=== PATIENT | female | born 1960 | race Caucasian/White ===

== ENCOUNTER → 2019-11-07 | Outpatient (CLI) | payer OTHER ==
[~2019-11-07] MED LIST: BUPROBAN PO; CYCL10 PO; Flomax0.4 MG PO; HYDCHL25 PO; LEVSOD125 PO; MULTI VITAMIN1 EACH PO; Percocet 5-3251 EACH PO; Prilosec Otc20 MG PO; SERT50 PO; TRAM50 PO; Zofran Odt4 MG SL
[2019-11-07 11:40] LABS: Source, Urine Clean Catch
[2019-11-07 11:45] LABS: Bacteria Many /hpf; Red Blood Cells, Urine 0-2 /hpf (0-2); Squamous Epithelial Cells Many /hpf (Few)
== END | disposition home or self-care (01) ==
LOC: LAB SHORT 11:38 → LAB EV 11:38
PROVIDERS: Internal Medicine Geriatric Medicine
DX: N39.0 Urinary tract infection, site not specified (principal)
CPT/HCPCS: 81015; 87086

== ENCOUNTER → 2019-11-10 | Outpatient (CLI) | payer OTHER ==
[2019-11-10 13:37] LABS: BASOPHILS ABSOLUTE AUTO 0.05 K/mm3 (0.00-0.23); BASOPHILS PERCENT AUTO 1 % (0-2); EOSINOPHILS ABSOLUTE AUTO 0.16 K/mm3 (0.00-0.68); EOSINOPHILS PERCENT AUTO 2 % (0-6); Hematocrit 39.6 % (33.0-51.0); IMMATURE GRAN ABSOLUTE AUTO 0.03 K/mm3 (0.00-0.10); IMMATURE GRAN PERCENT AUTO 0 % (0-1); LYMPHOCYTES ABSOLUTE AUTO 1.37 K/mm3 (0.84-5.20); LYMPHOCYTES PERCENT AUTO 14 % (21-46); MONOCYTES PERCENT AUTO 8 % (4-13); Mean Corpuscular HGB 29.6 pg (26.0-34.0); Mean Corpuscular HGB Conc 32.8 g/dL (31.5-36.5); Mean Corpuscular Volume 90 fL (80-100); Mean Platelet Volume 9.2 fL (9.1-12.4); NEUTROPHILS ABSOLUTE AUTO 7.43 K/mm3 (1.96-9.15); NEUTROPHILS PERCENT AUTO 76 % (41-73); Platelet Count 443 K/mm3 (150-400); RDW Coefficient Variation 12.7 % (11.7-14.2); RDW Standard Deviation 41.6 fL (35.1-46.3); Red Blood Cell Count 4.39 M/mm3 (3.80-5.20); White Blood Cell Count 9.84 K/mm3 (4.00-11.30)
[2019-11-10 13:48] LABS: Alanine Aminotransfer (ALT/SGP 20 U/L (12-78); Albumin, Blood 3.2 g/dL (3.4-5.0); Albumin/Globulin Ratio 0.8 (0.8-1.8); Alk Phos 97 U/L (40-126); Anion Gap 10 mmol/L (6-16); Aspartate Aminotrans (AST/SGOT 19 U/L (12-37); Bilirubin, Total 0.7 mg/dL (0.1-1.0); Blood Urea Nitrogen 16 mg/dL (8-24); Bun/Creatinine Ratio 18.6 (12.0-20.0); CO2, Blood 30 mmol/L (21-32); Calcium, Blood 8.8 mg/dL (8.5-10.1); Chloride, Blood 102 mmol/L (98-108); Creatinine, Blood 0.86 mg/dL (0.40-1.00); Globulin, Blood 4.2 g/dL (2.2-4.0); Glomerular Filtration Rate >60 (60-); Glucose, Blood 107 mg/dL (70-99); Potassium, Blood 3.7 mmol/L (3.5-5.5); Sodium, Blood 142 mmol/L (136-145); Total Protein, Blood 7.4 g/dL (6.4-8.2)
== END | disposition home or self-care (01) ==
LOC: LAB SHORT 13:33 → LAB EV 13:33
PROVIDERS: Physician Assistant
DX: R10.32 Left lower quadrant pain (principal)
CPT/HCPCS: 80053; 83690; 85025

== ENCOUNTER 2021-01-05 20:12 | Emergency (ER) | payer OTHER | END 2021-01-05 22:32 | disposition home or self-care (01) | LOC: ER 20:12 | DX: S82.852A Displaced trimalleolar fracture of left lower leg, initial encounter for closed fracture (principal); E03.9 Hypothyroidism, unspecified; Z88.0 Allergy status to penicillin; Z79.899 Other long term (current) drug therapy; W01.0XXA Fall on same level from slipping, tripping and stumbling without subsequent striking against object, initial encounter ==

== ENCOUNTER 2021-01-15 10:55 | Day surgery (SDC) | payer OTHER ==
[~2021-01-15] VITALS: Ht 165.1 cm; Wt 131.8 kg
[~2021-01-15 10:55] MED LIST changes: +CRUTCH2 XX; +OXYACE7.5T PO
[2021-01-15] MEDS ORDERED: MAGNESIUM OXID500 MG (11:53)
[2021-01-15] MEDS ORDERED: POTCIT10 (11:53)
--- NOTE | 2021-01-15 12:31 | NUR ---
01/15/21 1230 Nga Martinez VANCOMYCIN 1GM IVPB INFUSION STARTED AT 1229
== END 2021-01-15 15:08 | disposition home or self-care (01) ==
LOC: ORSCSDS 10:55
PROVIDERS: Podiatrist Foot & Ankle Surgery
PROC: 0MQR0ZZ Repair Left Ankle Bursa and Ligament, Open Approach (ICD-10-PCS; principal; 2021-01-15 12:15)
PROC: 0QSK04Z Reposition Left Fibula with Internal Fixation Device, Open Approach (ICD-10-PCS; principal; 2021-01-15 12:15)
DX: S82.851A Displaced trimalleolar fracture of right lower leg, initial encounter for closed fracture (principal); S93.422A Sprain of deltoid ligament of left ankle, initial encounter; E03.9 Hypothyroidism, unspecified; G47.33 Obstructive sleep apnea (adult) (pediatric); J45.909 Unspecified asthma, uncomplicated; E78.5 Hyperlipidemia, unspecified; Z79.899 Other long term (current) drug therapy
CPT/HCPCS: C1713; J0171; J1100; J1885; J2250; J2405; J2704; J3010; J3370

== ENCOUNTER → 2022-08-09 | Outpatient (CLI) | payer OTHER ==
[~2022-08-09] MED LIST changes: +MAGNESIUM OXID500 MG; +POTCIT10
== END | disposition home or self-care (01) ==
LOC: LAB SHORT 11:15 → LAB 11:15
DX: K21.9 Gastro-esophageal reflux disease without esophagitis (principal)
CPT/HCPCS: 87338

== ENCOUNTER → 2023-12-08 | Outpatient (CLI) | payer OTHER ==
[~2023-12-08] MED LIST changes: +ASPI81CH PO; +ATOR10 PO; +Diclofenac Sodi50 MG PO; +MAGNESIUM GLU27.5 M1 PO; +POTASSIUM CITR10 ME2 PO; +STEGLATRO5 MG PO; +SYNTHROID150 MC1 PO; +TOPI25 PO; +ZOLOFT10013 PO
[2023-12-08 20:26] LABS: Alanine Aminotransfer (ALT/SGP 33 U/L (12-78); Albumin, Blood 3.9 g/dL (3.4-5.0); Albumin/Globulin Ratio 1.2 (0.8-1.8); Alk Phos 88 U/L (50-136); Anion Gap 10 mmol/L (3-11); Aspartate Aminotrans (AST/SGOT 25 U/L (12-37); Bilirubin, Total 0.6 mg/dL (0.1-1.0); Blood Urea Nitrogen 19 mg/dL (8-24); Bun/Creatinine Ratio 22.1 (12.0-20.0); CHOL/HDL RATIO 4.1; CO2, Blood 27 mmol/L (21-32); Calcium, Blood 9.4 mg/dL (8.5-10.1); Chloride, Blood 107 mmol/L (98-108); Cholesterol 207 mg/dL (50-200); Creatinine, Blood 0.86 mg/dL (0.40-1.00); Globulin, Blood 3.3 g/dL (2.2-4.0); Glomerular Filtration Rate 75 (60-); Glucose, Blood 118 mg/dL (70-99); HDL Cholesterol 51 mg/dL (>39); LDL/HDL RATIO 2.3; Low Density Lipoprotein Chol 117 mg/dL (0-110); Magnesium, Blood 1.7 mg/dL (1.6-2.4); Potassium, Blood 3.6 mmol/L (3.5-5.5); Sodium, Blood 140 mmol/L (136-145); Total Protein, Blood 7.2 g/dL (6.4-8.2); Triglycerides 193 mg/dL (30-160); Very Low Density Lipoprot Chol 38 mg/dL (6-32)
== END | disposition home or self-care (01) ==
LOC: LAB SHORT 18:23 → LAB 18:23
PROVIDERS: Family Medicine
DX: E78.2 Mixed hyperlipidemia (principal); E03.4 Atrophy of thyroid (acquired); K21.9 Gastro-esophageal reflux disease without esophagitis; R60.0 Localized edema
CPT/HCPCS: 80053; 80061; 83735; 84443

== ENCOUNTER → 2024-04-22 | Outpatient (CLI) | payer OTHER ==
[2024-04-22 19:28] LABS: BASOPHILS ABSOLUTE AUTO 0.04 K/mm3 (0.00-0.23); BASOPHILS PERCENT AUTO 1 % (0-2); EOSINOPHILS ABSOLUTE AUTO 0.19 K/mm3 (0.00-0.68); EOSINOPHILS PERCENT AUTO 3 % (0-6); Hematocrit 44.7 % (33.0-51.0); Hemoglobin 14.3 g/dL (11.5-16.0); IMMATURE GRAN ABSOLUTE AUTO 0.03 K/mm3 (0.00-0.10); IMMATURE GRAN PERCENT AUTO 0 % (0-1); LYMPHOCYTES ABSOLUTE AUTO 1.86 K/mm3 (0.84-5.20); LYMPHOCYTES PERCENT AUTO 26 % (21-46); MONOCYTES ABSOLUTE AUTO 0.53 K/mm3 (0.16-1.47); MONOCYTES PERCENT AUTO 8 % (4-13); Mean Corpuscular HGB 29.4 pg (26.0-34.0); Mean Corpuscular Volume 92 fL (80-100); Mean Platelet Volume 10.5 fL (9.1-12.4); NEUTROPHILS ABSOLUTE AUTO 4.41 K/mm3 (1.96-9.15); NEUTROPHILS PERCENT AUTO 63 % (41-73); Platelet Count 350 K/mm3 (150-400); RDW Coefficient Variation 13.6 % (11.7-14.2); RDW Standard Deviation 45.9 fL (35.1-46.3); Red Blood Cell Count 4.87 M/mm3 (3.80-5.20); White Blood Cell Count 7.06 K/mm3 (4.00-11.30)
[2024-04-22 19:40] LABS: Alanine Aminotransfer (ALT/SGP 29 U/L (12-78); Albumin, Blood 3.8 g/dL (3.4-5.0); Albumin/Globulin Ratio 1.1 (0.8-1.8); Alk Phos 116 U/L (50-136); Anion Gap 9 mmol/L (3-11); Aspartate Aminotrans (AST/SGOT 23 U/L (12-37); Bilirubin, Total 0.6 mg/dL (0.1-1.0); Blood Urea Nitrogen 17 mg/dL (8-24); Bun/Creatinine Ratio 18.2 (12.0-20.0); CHOL/HDL RATIO 3.6; CO2, Blood 29 mmol/L (21-32); Chloride, Blood 105 mmol/L (98-108); Cholesterol 200 mg/dL (50-200); Creatinine, Blood 0.94 mg/dL (0.40-1.00); Globulin, Blood 3.5 g/dL (2.2-4.0); Glomerular Filtration Rate 68 (60-); Glucose, Blood 95 mg/dL (70-99); HDL Cholesterol 55 mg/dL (>39); LDL/HDL RATIO 1.7; Low Density Lipoprotein Chol 93 mg/dL (0-110); Potassium, Blood 3.6 mmol/L (3.5-5.5); Sodium, Blood 139 mmol/L (136-145); Total Protein, Blood 7.3 g/dL (6.4-8.2); Triglycerides 258 mg/dL (30-160); Very Low Density Lipoprot Chol 51 mg/dL (6-32)
== END | disposition home or self-care (01) ==
LOC: LAB SHORT 18:40 → LAB 18:40
PROVIDERS: Family Medicine
DX: E78.2 Mixed hyperlipidemia (principal); E87.6 Hypokalemia
CPT/HCPCS: 80053; 80061; 85025

== ENCOUNTER 2025-04-02 12:09 | Day surgery (SDC) | payer OTHER ==
[~2025-04-02] VITALS: Ht 165.1 cm; Wt 139.7 kg
[~2025-04-02 12:09] MED LIST changes: +Balanced Salt Epinephrine Irrigation Solution 500 mL IR SCH; +Moxifloxacin HCL 0.5 MG/0.1 ML 0.4MLSYR RIGHTEYE SCH; +Ondansetron 4 MG SoluTab MM PRN; +PHENYLEPHRINE\\TROPICAMIDE\\TETRACAINE OPHTHALMIC DILATING SOLN RIGHTEYE PRN; +Povidone-Iodine 450 DROP/30 ML Solution ONE; +Povidone-Iodine 450 DROP/30 ML Solution RIGHTEYE SCH; +Tetracaine HCl/Pf 0.5% Opth Soln 4 ml ONE
--- NOTE | 2025-04-02 13:27 | NUR ---
04/02/25 1327 Su Arnold 1323 BP:133/87 HR:66 O2:97% RESP:16
--- NOTE | 2025-04-02 13:37 | NUR ---
04/02/[id number] AT BEDSIDE
[2025-04-02 13:40] VITALS: BP 171/79
== END 2025-04-02 13:52 | disposition home or self-care (01) ==
LOC: ORSCSDS 12:09
PROVIDERS: Student in an Organized Health Care Education/Training Program
PROC: 08RJ3JZ Replacement of Right Lens with Synthetic Substitute, Percutaneous Approach (ICD-10-PCS; principal; 2025-04-02 14:00)
DX: E11.36 Type 2 diabetes mellitus with diabetic cataract (principal); H25.813 Combined forms of age-related cataract, bilateral; J45.909 Unspecified asthma, uncomplicated; E78.5 Hyperlipidemia, unspecified; E78.00 Pure hypercholesterolemia, unspecified; E03.9 Hypothyroidism, unspecified; G47.33 Obstructive sleep apnea (adult) (pediatric); K21.9 Gastro-esophageal reflux disease without esophagitis; Z79.82 Long term (current) use of aspirin; Z79.899 Other long term (current) drug therapy
CPT/HCPCS: A9270; V2632

== ENCOUNTER 2025-04-09 12:00 | Day surgery (SDC) | payer OTHER ==
[~2025-04-09] VITALS: Ht 165.1 cm; Wt 141.8 kg
[~2025-04-09 12:00] MED LIST changes: +Moxifloxacin HCL 0.5 MG/0.1 ML 0.4MLSYR LEFTEYE SCH; -Moxifloxacin HCL 0.5 MG/0.1 ML 0.4MLSYR RIGHTEYE SCH; +PHENYLEPHRINE\\TROPICAMIDE\\TETRACAINE OPHTHALMIC DILATING SOLN LEFTEYE PRN; -PHENYLEPHRINE\\TROPICAMIDE\\TETRACAINE OPHTHALMIC DILATING SOLN RIGHTEYE PRN; +Povidone-Iodine 450 DROP/30 ML Solution LEFTEYE SCH; -Povidone-Iodine 450 DROP/30 ML Solution RIGHTEYE SCH
[2025-04-09] MEDS ORDERED: ALBU90OI INH (12:55)
[2025-04-09] MEDS ORDERED: BUPROPION XL150 M1 PO (12:56)
[2025-04-09] MEDS ORDERED: FLUTICASONE-SA1 EA10 IH (12:56)
--- NOTE | 2025-04-09 13:12 | NUR ---
04/09/25 1312 Yahaira Bejarano PT REPORTS ANXIETY LEVEL 2/10 PRIOR TO ADMINISTRATION OF VALIUM 10MG PO @ 1250. TETRACAINE IN AT 1252. PLEDGETT IN AT 1253. CONTINUOUS SPO2 AND HR MONITORING IN PLACE. CALL LIGHT IN PT'S HAND. PT'S FRIEND TANYA AT BEDSIDE. PT DISCUSSED WITH DR NORIEGA THAT SHE FEELS SHE MAY HAVE DEVELOPED AN ORAL THRUSH 4 DAYS AGO AND WONDERS IF IT COULD BE FROM ANY OF THE EYE DROPS. DR NORIEGA DISCUSSED THAT ONE OF THE EYE DROPS IS A STEROID AND COULD DRIP DOWN THE BACK OF THE THROAT. PT WAS ADVISED THAT IF THE SYMPTOMS DON'T RESOLVE TO FOLLOW UP WITH HER PCP FOR EVAL AND TREATMENT.
--- NOTE | 2025-04-09 13:36 | NUR ---
04/09/25 1336 Annemarie Palacios VITALS AT 1335 BP: 151/77 P: 70 O2: 99% WITH 9 LITERS OF BLOW BY OXYGEN
[2025-04-09 13:49] VITALS: BP 143/76
== END 2025-04-09 14:00 | disposition home or self-care (01) ==
LOC: ORSCSDS 12:00
PROVIDERS: Student in an Organized Health Care Education/Training Program
PROC: 08RK3JZ Replacement of Left Lens with Synthetic Substitute, Percutaneous Approach (ICD-10-PCS; principal; 2025-04-09 14:00)
DX: E11.36 Type 2 diabetes mellitus with diabetic cataract (principal); H25.812 Combined forms of age-related cataract, left eye; Z96.1 Presence of intraocular lens; I10 Essential (primary) hypertension; E78.5 Hyperlipidemia, unspecified; E03.9 Hypothyroidism, unspecified; G47.33 Obstructive sleep apnea (adult) (pediatric); J45.909 Unspecified asthma, uncomplicated; K21.9 Gastro-esophageal reflux disease without esophagitis; Z79.82 Long term (current) use of aspirin; Z79.899 Other long term (current) drug therapy
CPT/HCPCS: A9270; V2632

== ENCOUNTER → 2025-04-25 | Outpatient (CLI) | payer OTHER ==
[~2025-04-25] MED LIST changes: +ALBU90OI INH; +BUPROPION XL150 M1 PO; -Balanced Salt Epinephrine Irrigation Solution 500 mL IR SCH; +FLUTICASONE-SA1 EA10 IH; -Moxifloxacin HCL 0.5 MG/0.1 ML 0.4MLSYR LEFTEYE SCH; -Ondansetron 4 MG SoluTab MM PRN; -PHENYLEPHRINE\\TROPICAMIDE\\TETRACAINE OPHTHALMIC DILATING SOLN LEFTEYE PRN; -Povidone-Iodine 450 DROP/30 ML Solution LEFTEYE SCH; -Povidone-Iodine 450 DROP/30 ML Solution ONE; -Tetracaine HCl/Pf 0.5% Opth Soln 4 ml ONE
[2025-04-25 22:06] LABS: Alanine Aminotransfer (ALT/SGP 30 U/L (12-78); Albumin, Blood 3.9 g/dL (3.4-5.0); Albumin/Globulin Ratio 1.2 (0.8-1.8); Anion Gap 4 mmol/L (3-11); Aspartate Aminotrans (AST/SGOT 16 U/L (12-37); Bilirubin, Total 0.4 mg/dL (0.1-1.0); Blood Urea Nitrogen 21 mg/dL (8-24); CHOL/HDL RATIO 3.2; CO2, Blood 33 mmol/L (21-32); Calcium, Blood 9.2 mg/dL (8.5-10.1); Chloride, Blood 106 mmol/L (98-108); Cholesterol 164 mg/dL (50-200); Creatinine, Blood 0.94 mg/dL (0.40-1.00); Globulin, Blood 3.3 g/dL (2.2-4.0); Glucose, Blood 97 mg/dL (70-99); HDL Cholesterol 52 mg/dL (>39); LDL/HDL RATIO 1.6; Low Density Lipoprotein Chol 85 mg/dL (0-110); Potassium, Blood 3.7 mmol/L (3.5-5.5); Sodium, Blood 139 mmol/L (136-145); Thyroid Stimulating Hormone 6.910 uIU/mL (0.360-4.800); Total Protein, Blood 7.2 g/dL (6.4-8.2); Triglycerides 135 mg/dL (30-160); Very Low Density Lipoprot Chol 27 mg/dL (6-32)
== END | disposition home or self-care (01) ==
LOC: LAB SHORT 19:22 → LAB 19:22
PROVIDERS: Family Medicine
DX: E03.9 Hypothyroidism, unspecified (principal); E78.5 Hyperlipidemia, unspecified; R60.0 Localized edema
CPT/HCPCS: 80053; 80061; 84443